=== PATIENT | male | born 1960 | race Native Hawaiian/Other Pacific Islander ===

== ENCOUNTER 2016-09-18 05:41 | Inpatient (IN) | payer OTHER ==
[~2016-09-18] VITALS: Ht 180.3 cm; Wt 76.0 kg
[2016-09-18 05:47] VITALS: BP 164/72; TEMP 98.1
[2016-09-18] MEDS ORDERED: LISI20TA11 PO (05:49)
[2016-09-18] MEDS ORDERED: ANORO ELLIPTA 61 AER IN (05:50)
[2016-09-18] MEDS ORDERED: NITROSTAT0.4 MG SL (05:51)
[2016-09-18 06:29] LABS: PLATELET COUNT 112 K/uL (142-355)
[2016-09-18 06:39] LABS: SODIUM 138 mmol/L (136-145)
[2016-09-18 07:15] VITALS: BP 141/72
[2016-09-18 15:31] VITALS: BP 168/70; TEMP 98.1; Ht 180.3 cm; Wt 76.0 kg
[2016-09-18 15:56] VITALS: BP 188/78; TEMP 98.9
[2016-09-18 20:00] VITALS: BP 177/79; TEMP 99
[2016-09-19] VITALS: BP 171/78; TEMP 98.9
[2016-09-19 04:00] VITALS: BP 151/78; TEMP 98.6
[2016-09-19 06:39] LABS: PLATELET COUNT 83 K/uL (142-355)
[2016-09-19 07:00] LABS: POTASSIUM 3.7 mmol/L (3.6-5.2); SODIUM 132 mmol/L (136-145)
[2016-09-19 08:00] VITALS: BP 162/82; TEMP 98.1
[2016-09-19 12:17] VITALS: BP 159/84; TEMP 98.6
[2016-09-19 16:00] VITALS: BP 178/80; TEMP 97.8
[2016-09-19 20:00] VITALS: BP 198/84; TEMP 98.3
[2016-09-20 04:00] VITALS: BP 157/78; TEMP 98.2
[2016-09-20 07:01] LABS: PLATELET COUNT 81 K/uL (142-355)
[2016-09-20 08:00] VITALS: BP 169/87; TEMP 98.7
[2016-09-20 08:18] LABS: POTASSIUM 3.9 mmol/L (3.6-5.2); SODIUM 133 mmol/L (136-145)
[2016-09-20 12:00] VITALS: BP 172/76; TEMP 98.6
[2016-09-20 16:00] VITALS: BP 170/72; TEMP 98.3
[2016-09-20 20:00] VITALS: BP 187/86; TEMP 98.5
[2016-09-21] VITALS (14 sets, daily range): BP systolic 150–180; BP diastolic 69–94; TEMP 97.6–98.4
[2016-09-21 04:48] LABS: PLATELET COUNT 84 K/uL (142-355)
[2016-09-21 04:53] LABS: POTASSIUM 3.6 mmol/L (3.6-5.2); SODIUM 131 mmol/L (136-145)
[2016-09-21 05:02] LABS: PARTIAL THROMBOPLASTIN TIME 30.5 SECONDS (24.5-33.6)
[2016-09-22] VITALS: BP 173/80; TEMP 98
[2016-09-22 04:00] VITALS: BP 183/79; TEMP 98.7
[2016-09-22 04:36] LABS: PLATELET COUNT 83 K/uL (142-355)
[2016-09-22 05:03] LABS: POTASSIUM 4.1 mmol/L (3.6-5.2); SODIUM 132 mmol/L (136-145)
[2016-09-22 08:15] VITALS: BP 182/80; TEMP 99
[2016-09-22 11:59] VITALS: BP 157/74; TEMP 98.8
[2016-09-22 16:13] VITALS: BP 176/76; TEMP 98.6
[2016-09-22 20:00] VITALS: BP 170/68; TEMP 98.2
[2016-09-23 01:03] VITALS: BP 180/75; TEMP 99.7
[2016-09-23 04:00] VITALS: BP 164/80; TEMP 99.2
[2016-09-23 04:57] LABS: PLATELET COUNT 77 K/uL (142-355)
[2016-09-23 05:24] LABS: POTASSIUM 3.6 mmol/L (3.6-5.2); SODIUM 134 mmol/L (136-145)
[2016-09-23 08:00] VITALS: BP 163/80; TEMP 98.8
[2016-09-23 12:00] VITALS: BP 165/71; TEMP 97.7
== END 2016-09-23 16:15 | disposition home or self-care (01) | DRG 580 ==
LOC: ED 05:41 → MED/SURG 06:15
PROVIDERS: Emergency Medicine
PROC: 0Y6S0Z1 Detachment at Left 2nd Toe, High, Open Approach (ICD-10-PCS; principal; 2016-09-21)
DX: L03.116 Cellulitis of left lower limb (principal); M86.8X7 Other osteomyelitis, ankle and foot; B95.62 Methicillin resistant Staphylococcus aureus infection as the cause of diseases classified elsewhere; F10.20 Alcohol dependence, uncomplicated; B19.20 Unspecified viral hepatitis C without hepatic coma; Z72.0 Tobacco use; J44.9 Chronic obstructive pulmonary disease, unspecified; I73.89 Other specified peripheral vascular diseases
CPT/HCPCS: 36415; 80048; 80053; 80202; 83735; 85027; 85610; 85730; 87040; 87070; 87077; 87185; 87186; 87205; 94640; 94664; 94760; 96361; 96365; 96366; 96367; 96372; 96374; 96375; 99284; J1650; J1885; J2001; J2060; J2250; J2405; J2704; J3370; J3490

== ENCOUNTER → 2016-09-24 09:21 | Outpatient (CLI) | payer OTHER ==
[~2016-09-24 09:21] MED LIST: ANORO ELLIPTA 61 AER IN; LISI20TA11 PO; NITROSTAT0.4 MG SL
== END | disposition home or self-care (01) ==
LOC: INF 09:00
DX: M86.271 Subacute osteomyelitis, right ankle and foot (principal); L03.116 Cellulitis of left lower limb
CPT/HCPCS: 96365; 96366; J3370

== ENCOUNTER 2016-09-26 09:32 | Outpatient (CLI) | payer OTHER ==
[~2016-09-26] VITALS: Ht 180.3 cm; Wt 75.7 kg
[2016-09-26 09:45] VITALS: BP 184/83; TEMP 98.7
== END 2016-09-26 13:50 | disposition home or self-care (01) ==
LOC: INF 09:32
DX: M86.271 Subacute osteomyelitis, right ankle and foot (principal); L03.116 Cellulitis of left lower limb
CPT/HCPCS: 96365; 96366; J3370

== ENCOUNTER 2016-09-27 09:43 | Outpatient (CLI) | payer OTHER ==
[~2016-09-27] VITALS: Ht 180.3 cm; Wt 75.7 kg
[2016-09-27 09:50] VITALS: BP 170/89; TEMP 97.7
[2016-09-27 12:27] VITALS: BP 155/80; TEMP 97.7
== END 2016-09-27 23:33 | disposition home or self-care (01) ==
LOC: INF 09:43
DX: M86.271 Subacute osteomyelitis, right ankle and foot (principal); L03.116 Cellulitis of left lower limb
CPT/HCPCS: 96365; 96366; J3370

== ENCOUNTER 2016-09-28 10:03 | Outpatient (CLI) | payer OTHER ==
[2016-09-28 10:05] VITALS: BP 155/85; TEMP 97.9
[2016-09-28 13:17] VITALS: BP 150/80; TEMP 97.9
== END 2016-09-28 23:41 | disposition home or self-care (01) ==
LOC: INF 10:03
DX: M86.271 Subacute osteomyelitis, right ankle and foot (principal); L03.116 Cellulitis of left lower limb
CPT/HCPCS: 96365; 96366; J3370

== ENCOUNTER 2016-09-29 09:59 | Outpatient (CLI) | payer OTHER ==
[~2016-09-29] VITALS: Ht 180.3 cm; Wt 75.7 kg
[2016-09-29 10:05] VITALS: BP 177/85; TEMP 98
[2016-09-29 13:48] VITALS: BP 192/92; TEMP 98
== END 2016-09-29 19:07 | disposition home or self-care (01) ==
LOC: INF 09:59
DX: M86.271 Subacute osteomyelitis, right ankle and foot (principal); L03.116 Cellulitis of left lower limb
CPT/HCPCS: 80202; 96365; 96366; J3370

== ENCOUNTER 2016-09-30 12:35 | Outpatient (CLI) | payer OTHER ==
[~2016-09-30] VITALS: Ht 180.3 cm; Wt 75.7 kg
[2016-09-30 12:35] VITALS: BP 180/94; TEMP 98.6
== END 2016-09-30 15:45 | disposition home or self-care (01) ==
LOC: INF 12:35
DX: M86.271 Subacute osteomyelitis, right ankle and foot (principal); L03.116 Cellulitis of left lower limb
CPT/HCPCS: 96365; 96366; J3370

== ENCOUNTER 2016-10-01 09:44 | Outpatient (CLI) | payer OTHER | END 2016-10-01 11:44 | disposition home or self-care (01) | LOC: INF 09:44 | DX: M86.271 Subacute osteomyelitis, right ankle and foot (principal); L03.116 Cellulitis of left lower limb | CPT/HCPCS: 96365; 96366 ==

== ENCOUNTER 2016-12-28 12:22 | Outpatient (CLI) | payer OTHER ==
[2016-12-28 12:56] LABS: POTASSIUM 5.2 mmol/L (3.6-5.2); SODIUM 131 mmol/L (136-145)
== END 2016-12-28 19:07 | disposition home or self-care (01) ==
LOC: LABW 12:22
PROVIDERS: Internal Medicine Cardiovascular Disease
DX: Z79.899 Other long term (current) drug therapy (principal); Z51.81 Encounter for therapeutic drug level monitoring
CPT/HCPCS: 36415; 80048

== ENCOUNTER 2017-05-26 10:48 | Outpatient (CLI) | payer OTHER ==
[2017-05-26 11:12] LABS: PLATELET COUNT 99 K/uL (142-355)
[2017-05-26 11:29] LABS: POTASSIUM 4.5 mmol/L (3.6-5.2); SODIUM 125 mmol/L (136-145)
== END 2017-05-26 19:15 | disposition home or self-care (01) ==
LOC: LABW 10:48
PROVIDERS: Surgery Vascular Surgery
DX: I70.262 Atherosclerosis of native arteries of extremities with gangrene, left leg (principal); Z01.812 Encounter for preprocedural laboratory examination
CPT/HCPCS: 36415; 80048; 85027

== ENCOUNTER 2017-10-13 16:47 | Outpatient (CLI) | payer OTHER ==
[2017-10-13] MEDS ORDERED: LIPITOR20 MG PO (17:11)
[2017-10-13] MEDS ORDERED: PROVENTIL IN (17:12)
[2017-10-13] MEDS ORDERED: METOPROLOL25 M1 (17:13)
[2017-10-13] MEDS ORDERED: CLOP75TA2 PO (17:13)
[2017-10-13] MEDS ORDERED: LISI20TA11 PO (17:14)
== END 2017-10-13 16:56 | disposition short-term general hospital (02) ==
LOC: AMB 16:47
DX: R07.81 Pleurodynia (principal); M79.605 Pain in left leg; W01.0XXA Fall on same level from slipping, tripping and stumbling without subsequent striking against object, initial encounter; Y92.098 Other place in other non-institutional residence as the place of occurrence of the external cause
CPT/HCPCS: A0425; A0427